=== PATIENT | male | born 1950 | race Caucasian/White ===

== ENCOUNTER → 2016-11-21 | Outpatient (CLI) | payer BC ==
[~2016-11-21] MED LIST: ASPIRIN (CHILDR81 MG PO; LIPITOR20 M1 PO; LOPRESSOR12.5 MG/0. PO; NITROSTAT0.4 MG SL; PLAVIX75 MG PO; PRILOSEC10 MG PO; VASOTEC2.5 MG PO
[2016-11-21 11:03] LABS: ALBUMIN 3.7 gm/dL (3.5-5.0); ALK PHOS 105 IU/L (33-138); ALT 45 IU/L (12-78); ANION GAP 13.2 (10.0-19.0); AST 22 IU/L (10-40); BLOOD UREA NITROGEN 16 mg/dL (6-24); CALCIUM 9.2 mg/dL (8.5-10.5); CHLORIDE 107 mMol/L (96-110); CO2 25 mMol/L (22-32); ESTIMATED GFR (MDRD EQUATION) > 60; POTASSIUM 4.2 mMol/L (3.7-5.1); SODIUM 141 mMol/L (135-145); TOTAL BILIRUBIN 0.6 mg/dL (0.0-1.5)
== END | disposition disaster alternative care site (69) ==
LOC: LNHI 10:45
PROVIDERS: Internal Medicine Interventional Cardiology
DX: I10 Essential (primary) hypertension (principal); I21.11 ST elevation (STEMI) myocardial infarction involving right coronary artery